=== PATIENT | male | born 1990 | race Two or more races ===

== ENCOUNTER 2022-12-21 14:09 | Emergency (ER) | payer SELFPAY ==
[~2022-12-21] VITALS: Ht 170.2 cm; Wt 89.0 kg
[2022-12-21 15:32] LABS: Urine Bacteria NONE SEEN /hpf (None Seen); Urine Blood Negative /uL (Negative); Urine Mucus MANY (None Seen); Urine Specific Gravity 1.034 (1.001-1.035); Urine WBC 1 /hpf (0 - 3)
[2022-12-22 10:25] VITALS: BP 144/99
[2022-12-22] MEDS ORDERED: ACET-6 PO (14:14)
[2022-12-22] MEDS ORDERED: CEPH500T PO (14:14)
== END 2022-12-22 14:35 | disposition home or self-care (01) ==
LOC: ER 14:09
DX: N39.0 Urinary tract infection, site not specified (principal)
CPT/HCPCS: 81001